=== PATIENT | male | born 1945 | race Caucasian/White ===

== ENCOUNTER 2017-11-13 17:14 | Observation (INO) | payer BC, MEDICARE ==
[~2017-11-13 17:14] MED LIST: ISOVUE-370 76%-LOCM 1 ML ONE
[2017-11-13 17:49] LABS: #Eosinphils 0.2 thou/uL (0.0-0.7); #Monocytes 0.5 thou/uL (0.11-0.59); #Neutrophils 3.7 thou/uL (1.40-6.50); %Basophils 0.3 % (0.0-1.0); %Eosinophils 2.5 % (0.0-10.0); %Lymphocytes 30.7 % (21.0-51.0); %Monocytes 8.5 % (0.0-10.0); Mean Corpuscular HGB CONC 32.2 g/dL (32.0-36.0); Mean Corpuscular Hemoglobin 28.9 pg (27.0-31.0); Mean Corpuscular Volume 89.8 fl (80.0-94.0); Platelet Count 139 thou/uL (130-400); RBC Distribution Width 12.6 % (11.5-14.5); White Blood Cell (WBC) Count 6.3 thou/uL (4.8-10.8)
[2017-11-13 18:18] LABS: ALT (SGPT) 24 U/L (8-55); AST (SGOT) 18 U/L (5-34); Albumin 4.3 g/dL (3.4-4.8); Alkaline Phosphatase 82 U/L (40-150); Anion Gap 11 mmol/L (10-20); BUN (Urea Nitrogen) 22 mg/dL (8.4-25.7); Bilirubin, Total 0.6 mg/dL (0.2-1.2); CK (CPK) 99 U/L (30-200); Calc. Creatinine Clearance 0 mL/min (70-130); Calcium 9.9 mg/dL (7.8-10.44); Carbon Dioxide 34 mmol/L (23-31); Chloride 99 mmol/L (98-107); Estimated GFR-MDRD 69; Globulin 2.9 g/dL (2.4-3.5); Glucose 101 mg/dL (83-110); Potassium 3.5 mmol/L (3.5-5.1); Protein, Total 7.2 g/dL (5.8-8.1); Sodium 140 mmol/L (136-145)
[2017-11-13 18:19] LABS: CKMB 2.8 ng/mL (0-6.6); Troponin I Less than 0.010 ng/mL (< 0.028)
--- NOTE | 2017-11-13 18:43 | RAD ---
PORTABLE AP CHEST X-RAY 11/13/17 HISTORY: Chest pressure. COMPARISON: 08/11/13. FINDINGS: Endotracheal tube and nasogastric tube are no longer visualized. The cardiac silhouette and pulmonary vasculature are within normal limits. The lungs are clear on today's exam. There is no other interva l change. IMPRESSION: No acute cardiopulmonary process. POS: [facility]
[2017-11-13] MEDS ORDERED: Famotidine/PF 20 mg/2ml Vial ONE (20:53)
[2017-11-13] MEDS ORDERED: Water For Inject, Bacteriostat 30 ML ONE (20:53)
[2017-11-13] MEDS ORDERED: methylPREDNISolone Sod Succ/PF 125 MG/2 ML VIAL ONE (20:53)
[2017-11-13] MEDS ORDERED: diphenhydrAMINE 50 MG/ML VIAL ONE (20:53)
[2017-11-13 21:26] LABS: Troponin I 0.015 ng/mL (< 0.028)
[2017-11-13 21:50] LABS: Bilirubin Negative (Negative); Blood, Urine Negative (Negative); Clarity CLEAR (Clear); Glucose, Urine (Dipstick) Negative (Negative); Leukocyte Negative (Negative); Nitrite Negative (Negative); Protein, Urine (Dipstick) Negative (Neg-Trace); Urobilinogen 0.2 mg/dL (0.2-1.0); pH, Urine 7.5 (5.0-9.0)
[2017-11-13] MEDS ORDERED: Ondansetron HCl/PF 4 MG/2 ML Vial IVP PRN (22:10)
[2017-11-13] MEDS ORDERED: Acetaminophen 325 MG TAB PO PRN (22:10)
[2017-11-13] MEDS ORDERED: Ondansetron ODT 4 MG TAB SL PRN (22:10)
[2017-11-13 22:18] VITALS: BMI 30.6
[2017-11-13] MEDS ORDERED: Diazepam 5 MG TAB PO PRN (23:36)
[2017-11-13] MEDS ORDERED: Meclizine HCl 25 MG TAB PO PRN (23:36)
[2017-11-13] MEDS ORDERED: Temazepam 15 MG CAP PO PRN (23:46)
[2017-11-13] MEDS ORDERED: hydrALAZINE 20 MG/ML VIAL SLOW IVP PRN (23:46)
[2017-11-13] MEDS ORDERED: Nitroglycerin 0.4 MG TAB (25 Tab Bottle) PO PRN (23:46)
[2017-11-13] MEDS ORDERED: HYDROcodone/Acetaminophen 5/325 mg Tablet PO PRN (23:46)
[2017-11-13] MEDS ORDERED: Sodium Chloride 0.9% 1,000 ML IV SCH (23:59)
--- NOTE | 2017-11-14 00:13 | CT ---
CT ANGIOGRAM ABDOMEN AND PELVIS WITH IV CONTRAST AND 3D RECONSTRUCTIONS CT ANGIOGRAM BILATERAL LOWER EXTREMITIES WITH RUNOFF TO THE FEET WITH IV CONTRAST AND 3D RECONSTRUCTI ONS. 11/13/17 HISTORY: Interval development of bilateral lower extremity pain. FINDINGS: There is mild dependent bibasilar atelectasis. There is a large exophytic hypodense right renal lesion involving the superior pole mid portion of th e right kidney measuring 13 cm which demonstrates fluid attenuation consistent with a cyst. A small e xophytic lesion seen at the inferior pole left kidney measuring 3.2 cm, also demonstrating characteri stics most consistent with a cyst. A subcentimeter to small to characterize hypodense lesion is seen at the superior pole left kidney. The liver, spleen, pancreas, bilateral adrenal glands, and decompressed urinary bladder demonstrate a normal CT appearance for arterial phase of imaging. There is colonic diverticulosis seen throughout the colon. There is a fat containing left inguinal he rnia present, but the portion of the sigmoid colon extends just within the defect of the left inguina l hernia. There is no bowel obstruction. The abdominal aorta and iliac arteries are patent. The celiac, superior mesenteric, and inferior mese nteric arteries are patent. There are two patent bilateral renal arteries identified. BILATERAL LOWER EXTREMITY RUNOFF: The bilateral common femoral, superficial femoral, profunda femoral, and popliteal arteries are widel y patent. The proximal aspects of the tibioperoneal vessels are patent. However, the tibioperoneal vessels are not seen distal to the level of the mid calf. Given that this is a symmetric finding bilaterally, thi s is probably secondary to the timing of the contrast bolus and as result significant stenosis or occ lusion of the tibioperoneal vessels in the bilateral lower extremities cannot be determined based on this exam. IMPRESSION: 1. Patent abdominal aorta and bilateral iliac arteries. 2. Patent mesenteric vessels and renal arteries. 3. Patent femoral and popliteal arteries. 4. The tibioperoneal vessels are not opacified from the level of the mid calf to the feet, given that this is a symmetric finding, this is probably attributable to timing of the contrast bolus. As a result, significant narrowing or occlusion of the tibioperoneal vessels cannot be excluded based on this exam. 5. Colonic diverticulosis. 6. Bilateral renal cysts. 7. Left inguinal hernia which is predominantly fat containing, but a small portion of the sigmoi d colon extends just into this defect. POS: [facility]
--- NOTE | 2017-11-14 02:40 | HP ---
CHIEF COMPLAINT: Leg swelling and chest pain. HISTORY OF PRESENT ILLNESS: This is a 72-year-old pleasant gentleman who was apparently in usual sta te of health, went to the primary care physician day before yesterday evening for evaluation of bilat eral leg swelling. The patient was sent home after being evaluated. As the patient got home, he dev eloped chest pain which is retrosternal and then also went up to his arm and neck. It was associated with some shortness of breath and felt like indigestion. He denies syncope, dizziness, abdominal pa in, nausea, vomiting, fever, or palpitations. The patient's intensity was 7/10. The patient's pain was dull in nature, not associated with chills, associated with cough and relieved by nothing, exacer bated by nothing. Following this reason, the patient was sent by the primary care physician for eval uation of that pain to the ER. PAST MEDICAL HISTORY: Significant for prostate malignancy which is treated with hormonal and radiati on therapy. PAST SURGICAL HISTORY: Tunnel repair, bilateral cataract repair, right thumb amputation repair, katie ia repair, tonsillectomy. PSYCHIATRIC HISTORY: No previous psychiatric history. SOCIAL HISTORY: Drinks socially. Denies any smoking or recreational drug use. ALLERGIES: Known allergy to IODINE, he passes out. CURRENT MEDICATIONS: Include hydrochlorothiazide 25 p.o. b.i.d., aspirin 81 mg p.o. daily, Zofran, d iazepam 5 mg p.o. q.6 hours p.r.n. for dizziness, meclizine 25 p.o. q.6 hours p.r.n. for dizziness, A llegra, magnesium, and metoprolol 25 p.o. daily. REVIEW OF SYSTEMS: Significant for chest pain and the bilateral swelling of leg, otherwise no fever, no chills, no headache, no appetite, no hearing loss, no latencies. No cough, no diarrhea, dysuria or polyuria. No memory or mood changes. No neck pain. PHYSICAL EXAMINATION: VITAL SIGNS: Blood pressure is 113/74, pulse is 54, respirations 16, sats 98% on room air. GENERAL: Patient is lying in bed in no apparent distress. HEENT: Atraumatic and normocephalic. Pupils equal, round, react to light. Extraocular movements in tact. Mucous membranes moist. NECK: Supple. No JVD. CHEST: Breath sounds heard. No rales or rhonchi. HEART: S1, S2, no murmurs or gallops. ABDOMEN: Soft. EXTREMITIES: No cyanosis, clubbing, edema. Distal pulses present. NEUROLOGIC: Alert, awake, oriented. No cranial nerve deficits. No sensorimotor deficits. EXTREMITIES: No cyanosis or clubbing. Right now, I cannot appreciate any edema and I can palpate di stal pulses. LABORATORY DATA: EKG shows sinus bradycardia, ST segment normal, T-wave normal rate is 53. Chest x- ray shows no infiltrates, no pneumothorax, no hemothorax. WBC count is 6.3, hemoglobin is 15. Sodiu m is 140, potassium is 3.5, creatinine is 106. Two sets of troponin are negative. Lipase is 23. UA is negative. ASSESSMENT AND PLAN: Chest pain, rule out acute coronary syndrome. Patient's PCP wanted a CTA of th e chest to study the vasculature of the heart and the aorta, report is pending. We will consult Card iology, trend troponins and do echocardiogram and give p.r.n. medications for the pain. Prostate can cer followed by MD Whitaker, undergoing treatment, bilateral pedal edema, seems to have resolved now. Sequential compression devices for deep venous thrombosis prophylaxis. I will work with the jinny jang for further caring for the patient.
[2017-11-14 05:48] LABS: #Lymphocytes 0.7 thou/uL (1.20-3.40); #Neutrophils 4.8 thou/uL (1.40-6.50); %Basophils 0.1 % (0.0-1.0); %Eosinophils 0.4 % (0.0-10.0); %Lymphocytes 12.1 % (21.0-51.0); %Monocytes 0.6 % (0.0-10.0); %Neutrophils 86.8 % (42.0-75.0); Hemoglobin 13.8 g/dL (14.0-18.0); Mean Corpuscular HGB CONC 32.4 g/dL (32.0-36.0); Mean Corpuscular Volume 89.5 fl (80.0-94.0); Mean Platelet Volume 9.4 fL (7.4-10.4); Platelet Count 140 thou/uL (130-400); RBC Distribution Width 12.4 % (11.5-14.5); Red Blood Cell (RBC) Count 4.77 mill/uL (4.70-6.10); White Blood Cell (WBC) Count 5.5 thou/uL (4.8-10.8)
[2017-11-14 06:13] LABS: Anion Gap 15 mmol/L (10-20); BUN (Urea Nitrogen) 24 mg/dL (8.4-25.7); Calc. Creatinine Clearance 86 mL/min (70-130); Calcium 9.6 mg/dL (7.8-10.44); Carbon Dioxide 25 mmol/L (23-31); Cardiac Risk 4.1 (Less than 4.5); Chloride 104 mmol/L (98-107); Cholesterol 163 mg/dl (< 200 Desired); Estimated GFR-MDRD 65; Glucose 181 mg/dL (83-110); HDL Cholesterol 40 mg/dL (>60 Neg Risk); LDL Cholesterol, Calculated 95 mg/dL; Potassium 3.6 mmol/L (3.5-5.1); Sodium 140 mmol/L (136-145); Triglycerides 141 mg/dL (Less than 150)
[2017-11-14] MEDS ORDERED: Aspirin 325 MG TAB PO SCH (09:00)
[2017-11-14] MEDS ORDERED: Hydrochlorothiazide 25 MG TAB PO SCH (09:00)
[2017-11-14 11:31] VITALS: BP 113/71; TEMP 97.8
[2017-11-14] MEDS ORDERED: Atorvastatin Calcium 20 MG TAB PO SCH (21:00)
--- NOTE | 2017-11-14 23:03 | CON ---
DATE OF CONSULTATION: 11/14/2017 PRIMARY PHOTOGRAPHY TEACHER: Avtar Batista M.D. HISTORY OF PRESENT ILLNESS: Mr. Sanchez is a very pleasant 72-year-old white gentleman who comes to the hospital for chest pain and leg swelling. He wore some socks and he noted that his feet were sw ollen and the skin was erythematous in the area where he wore the socks. He thought he might have elizabeth d an allergic reaction to them. He went to see his primary care doctor. He also started to have jm st pain. He described it as an epigastric pain that lasted for about a day and a half. He decided t o come in for further evaluation of all this. He denies any associated symptoms. His pain went up i nto his left arm and the neck. He also has the pain on the right side of his chest that is worse whe n you touch his chest. There is a similar pain on the right side. PAST MEDICAL HISTORY: History of prostate cancer treated with hormonal therapy and radiation, hypert ension. PAST SURGICAL HISTORY: 1. Carpal tunnel repair. 2. Bilateral cataract surgery. 3. Right thumb repair. 4. Hernia repair. 5. Tonsillectomy. SOCIAL HISTORY: No tobacco or drugs. Alcohol use is social only. OUTPATIENT MEDICATIONS: Include, 1. Hydrochlorothiazide 25 mg p.o. b.i.d. 2. Aspirin 81 a day. 3. Zofran. 4. Diazepam. 5. Meclizine p.r.n. 6. Pam. 7. Magnesium. 8. Metoprolol 25 mg b.i.d. ALLERGIES: IODINE has made him pass out before and developed a rash. REVIEW OF SYSTEMS: A 12-point review of systems was done and is all negative unless stated in the hi story of present illness. PHYSICAL EXAMINATION: VITAL SIGNS: Temperature 97.8, pulse 61, respiration rate 16, satting 94% on room air. Blood pressu re 113/71. GENERAL: Awake, alert, oriented x3, in no distress. HEENT: Normocephalic, atraumatic. NECK: Supple. LUNGS: Clear. CARDIOVASCULAR: S1, S2, no S3, S4, no murmurs or rubs. Chest wall is tender to palpation bilateral right and left sides. ABDOMEN: Soft, positive bowel sounds. EXTREMITIES: No edema. SKIN: Warm and dry. LABORATORY WORK: Reviewed. CBC was reviewed and unremarkable. D-dimer was undetectable. Chemistri es were unremarkable. Troponin was completely negative x3. BNP was 81. UA was unremarkable. Chest x-ray was reviewed. CT angio of the aorta done yesterday in the ER showed patent abdominal aor ta and bilateral iliac arteries. Mesenteric vessels and renal arteries were patent. Femoral and pop liteal arteries are patent. Tibial and peroneal vessels are not well-opacified and cannot comment on those. Colonic diverticulosis, bilateral renal cysts, and left inguinal hernia predominantly fat co ntaining with a small portion in the sigmoid colon extending just into the defect. Echocardiogram was reviewed, normal LV function with diastolic dysfunction grade I. ASSESSMENT AND PLAN: 1. Chest pain. 2. Hypertension. PLAN: He has ruled out with negative enzymes and unremarkable EKG. Echocardiogram does not suggest an acute coronary syndrome going on. He is currently chest pain free. At this time, I gave him garcia ce of doing a stress test over the weekend versus just discharging him home and doing this workup as an outpatient. He states that he feels very well right now. He has not had any more chest pain for over 48 hours and he would like to go home and have this scheduled as an outpatient with Dr. Kris torre's office. I think this is reasonable. We will plan on doing the workup as an outpatient and will schedule him for a PET scan as an outpatient with followup with Dr. Batista. Thank you for letting us to participate in the care of your patient.
--- NOTE | 2017-11-29 13:14 | EKG ---
Test Reason : CP Blood Pressure : / mmHG Vent. Rate : 053 BPM Atrial Rate : 053 BPM P-R Int : 160 ms QRS Dur : 078 ms QT Int : 448 ms P-R-T Axes : 030 054 048 degrees QTc Int : 420 ms Sinus bradycardia Otherwise normal ECG Confirmed by LEE ANN EAGLE, RHIANNON ([id number]), movie editor MARY LOVE ([id number]) on 11/29/2017 1:14:19 PM Referred By: Confirmed By:RHIANNON NANCE MD
== END 2017-11-14 17:15 | disposition home or self-care (01) ==
LOC: ERS 17:14 → 2SW 20:38
PROVIDERS: ADMIT Internal Medicine; ATTEND Internal Medicine
DX: R07.89 Other chest pain (principal); R22.43 Localized swelling, mass and lump, lower limb, bilateral; I10 Essential (primary) hypertension; Z91.041 Radiographic dye allergy status; Z79.899 Other long term (current) drug therapy; Z98.42 Cataract extraction status, left eye; Z98.41 Cataract extraction status, right eye; Z90.89 Acquired absence of other organs; Z89.011 Acquired absence of right thumb; Z98.890 Other specified postprocedural states; Z92.3 Personal history of irradiation; Z85.46 Personal history of malignant neoplasm of prostate
CPT/HCPCS: 36415; 71045; 75635; 80048; 80053; 80061; 81003; 82553; 83690; 83880; 84484; 85025; 85379; 93005; 93306; 94760; 96360; 96361; 96374; 96375; G0378; J1200; J2930; S0028

== ENCOUNTER 2018-12-08 11:42 | Emergency (ER) | payer BC, MEDICARE ==
[2018-12-08 12:19] LABS: White Blood Cell (WBC) Count 5.3 thou/uL (4.8-10.8)
[2018-12-08 12:20] LABS: #Eosinphils 0.1 thou/uL (0.0-0.7); #Lymphocytes 1.2 thou/uL (1.20-3.40); #Monocytes 0.3 thou/uL (0.11-0.59); #Neutrophils 3.7 thou/uL (1.40-6.50); %Basophils 0.4 % (0.0-1.0); %Eosinophils 1.3 % (0.0-10.0); %Lymphocytes 23.4 % (21.0-51.0); %Monocytes 5.6 % (0.0-10.0); %Neutrophils 69.3 % (42.0-75.0); Hemoglobin 14.9 g/dL (14.0-18.0); Mean Corpuscular HGB CONC 32.8 g/dL (32.0-36.0); Mean Corpuscular Hemoglobin 29.4 pg (27.0-31.0); Mean Corpuscular Volume 89.7 fL (78.0-98.0); Mean Platelet Volume 9.4 fL (7.4-10.4); Platelet Count 134 thou/uL (130-400); RBC Distribution Width 12.4 % (11.5-14.5); Red Blood Cell (RBC) Count 5.06 mill/uL (4.70-6.10)
[2018-12-08 12:44] LABS: ALT (SGPT) 32 U/L (8-55); AST (SGOT) 36 U/L (5-34); Albumin 4.8 g/dL (3.4-4.8); Alkaline Phosphatase 84 U/L (40-150); Anion Gap 11 mmol/L (10-20); BUN (Urea Nitrogen) 22 mg/dL (8.4-25.7); Bilirubin, Total 0.6 mg/dL (0.2-1.2); CK (CPK) 162 U/L (30-200); Calc. Creatinine Clearance 0 mL/min (70-130); Calcium 10.3 mg/dL (7.8-10.44); Carbon Dioxide 32 mmol/L (23-31); Chloride 100 mmol/L (98-107); Estimated GFR-MDRD 64; Globulin 3.4 g/dL (2.4-3.5); Glucose 99 mg/dL (83-110); Lipase 60 U/L (8-78); Potassium 4.1 mmol/L (3.5-5.1); Protein, Total 8.2 g/dL (5.8-8.1); Sodium 139 mmol/L (136-145)
--- NOTE | 2018-12-08 13:08 | RAD ---
CHEST ONE VIEW: HISTORY: Chest pain. COMPARISON: 11/13/2017 FINDINGS: The lungs are clear. No pneumothorax or effusion. The cardiac silhouette and mediastinal contours a re within normal limits. IMPRESSION: No acute intrathoracic abnormality. POS: [facility]
--- NOTE | 2018-12-08 13:16 | CT ---
CT HEAD WITHOUT CONTRAST: HISTORY: Pain. COMPARISON: 10/04/2012 FINDINGS: No parenchymal hemorrhage. No extraaxial hematoma. No midline shift. The basilar cisterns are pickard nt. Brain volume is age appropriate. Cortical junior white matter differentiation is preserved. No evidence of hydrocephalus. Left scleral gland is noted. Calvarium is intact. Adequate aeration of the sinuses and mastoid air cells. IMPRESSION: No acute intracranial process. POS: [facility]
[2018-12-08] MEDS ORDERED: Aspirin Chewable 81 MG TAB ONE (13:18)
== END 2018-12-08 14:10 | disposition home or self-care (01) ==
LOC: ERS 11:42
DX: R07.2 Precordial pain (principal); Z79.899 Other long term (current) drug therapy; Z79.82 Long term (current) use of aspirin
CPT/HCPCS: 70450; 71045; 80053; 82550; 83690; 83880; 84484; 85025; 87804; 93005

== ENCOUNTER 2019-03-03 17:13 | Emergency (ER) | payer BC, MEDICARE ==
[2019-03-03] MEDS ORDERED: Ibuprofen 200 MG TAB ONE (17:51)
== END 2019-03-03 17:54 | disposition home or self-care (01) ==
LOC: SCSER 17:13
DX: R51 Headache (principal)
CPT/HCPCS: 99283

== ENCOUNTER 2019-03-10 12:37 | Outpatient (CLI) | payer BC, MEDICARE ==
--- NOTE | 2019-03-10 23:26 | HP ---
HISTORY OF PRESENT ILLNESS: Mr. 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 The patient's medical history is significant for prostate carcinoma treated with Lupron and radiation therapy. 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 He states that his radiation oncologist has recommended a course of 20 treatments for radiation enteritis. PAST MEDICAL HISTORY: 1. Meniere disease. 2. Seasonal allergies. 3. History of acute angioedema. 4. History of pericarditis. 5. Prostate carcinoma status post treatment with Lupron and radiation. PAST SURGICAL HISTORY: 1. Cataract surgery of right eye. 2. Cataract surgery of left eye. 3. Right thumb surgery. 4. Tonsillectomy. 5. Right inguinal herniorrhaphy with mesh. 6. Right hydrocelectomy. 7. Left eye surgery for retinal detachment x4. 8. Right eye surgery for retinal detachment x2.. MEDICATIONS: 1. Hydrochlorothiazide. 2. Pam. 3. Vitamin D. 4. Magnesium. 5. Metoprolol. 6. Vitamin C. 7. Coenzyme Q10. 8. Atorvastatin. 9. Potassium. ALLERGIES: IODINE, IODINATED CONTRAST. SOCIAL HISTORY: Social history is negative for tobacco use. The patient admits to the consumption of less than one drink per week. FAMILY HISTORY: Family history is significant for diabetes mellitus. The patient states that his father was diagnosed with diabetes mellitus. Family history is also significant for coronary artery disease. The patient states that his mother was diagnosed with coronary artery disease. PHYSICAL EXAMINATION: VITAL SIGNS: Temperature 98.0, pulse 60, respirations 18, blood pressure 121/71. GENERAL: A 73-year-old gentleman, sitting on table in examination room, in no acute distress. HEENT: Normocephalic and atraumatic. NECK: No nuchal rigidity. CHEST: Clear to auscultation. CV: Regular rate and rhythm. ABDOMEN: Soft. EXTREMITIES: No clubbing or cyanosis. NEUROLOGIC: Grossly nonfocal. ASSESSMENT AND PLAN: 1. 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 The patient reports lower GI bleeding for the past 2 years. The patient states his radiation oncologist has referred him for a course of 20 hyperbaric oxygen treatments. The patient denies any history of congestive heart failure, seizures, crushing chest trauma, collapsed lung, recent retinal surgery, blood disorders including hereditary spherocytosis or the administration of any chemotherapeutic agents contraindicating hyperbaric oxygen therapy. The patient understands the risks and benefits of hyperbaric oxygen therapy and wishes to proceed. The patient will be treated at 2.5 CHOLO with each session lasting 90 minutes. As stated above, the patient will receive a course of 20 treatments. 2. Meniere disease. 3. Seasonal allergies. 4. History of acute angioedema. 5. History of pericarditis. 6. Prostate carcinoma, status post treatment with Lupron and radiation. Job ID: [id number]
== END 2019-03-10 12:38 | disposition home or self-care (01) ==
LOC: WCC 12:37
PROVIDERS: ATTEND Family Medicine
DX: K52.0 Gastroenteritis and colitis due to radiation (principal); H81.09 Meniere's disease, unspecified ear; J30.2 Other seasonal allergic rhinitis; Z85.46 Personal history of malignant neoplasm of prostate
CPT/HCPCS: 99183; 99202; G0463

== ENCOUNTER 2019-03-11 11:18 | Outpatient (CLI) | payer BC, MEDICARE | END 2019-03-11 11:19 | disposition home or self-care (01) | LOC: WCC 11:18 | PROVIDERS: ATTEND Family Medicine | DX: K52.0 Gastroenteritis and colitis due to radiation (principal) | CPT/HCPCS: G0277 ==

== ENCOUNTER 2019-03-15 10:44 | Outpatient (CLI) | payer BC, MEDICARE | END 2019-03-15 10:45 | disposition home or self-care (01) | LOC: WCC 10:44 | PROVIDERS: ATTEND Family Medicine | DX: K52.0 Gastroenteritis and colitis due to radiation (principal) | CPT/HCPCS: G0277 ==

== ENCOUNTER 2019-03-16 11:10 | Outpatient (CLI) | payer BC, MEDICARE | END 2019-03-16 11:11 | disposition home or self-care (01) | LOC: WCC 11:10 | PROVIDERS: ATTEND Family Medicine | DX: K52.0 Gastroenteritis and colitis due to radiation (principal) | CPT/HCPCS: G0277 ==

== ENCOUNTER 2019-03-17 11:37 | Outpatient (CLI) | payer BC, MEDICARE | END 2019-03-17 11:38 | disposition home or self-care (01) | LOC: WCC 11:37 | PROVIDERS: ATTEND Family Medicine | DX: K52.0 Gastroenteritis and colitis due to radiation (principal) | CPT/HCPCS: G0277 ==

== ENCOUNTER 2019-03-18 11:22 | Outpatient (CLI) | payer BC, MEDICARE | END 2019-03-18 11:23 | disposition home or self-care (01) | LOC: WCC 11:22 | PROVIDERS: ATTEND Family Medicine | DX: K52.0 Gastroenteritis and colitis due to radiation (principal); C61 Malignant neoplasm of prostate | CPT/HCPCS: G0277 ==

== ENCOUNTER 2019-03-23 11:00 | Outpatient (CLI) | payer BC, MEDICARE | END 2019-03-23 11:01 | disposition home or self-care (01) | LOC: WCC 11:00 | PROVIDERS: ATTEND Family Medicine | DX: K52.0 Gastroenteritis and colitis due to radiation (principal) | CPT/HCPCS: 99183 ==

== ENCOUNTER 2019-03-24 12:59 | Outpatient (CLI) | payer BC, MEDICARE | END 2019-03-24 13:00 | disposition home or self-care (01) | LOC: WCC 12:59 | PROVIDERS: ATTEND Family Medicine | DX: K52.0 Gastroenteritis and colitis due to radiation (principal) | CPT/HCPCS: 99183 ==

== ENCOUNTER 2019-03-25 09:43 | Outpatient (CLI) | payer BC, MEDICARE | END 2019-03-25 09:44 | disposition home or self-care (01) | LOC: WCC 09:43 | PROVIDERS: ATTEND Family Medicine | DX: K52.0 Gastroenteritis and colitis due to radiation (principal) | CPT/HCPCS: 99183 ==

== ENCOUNTER 2019-03-30 13:38 | Outpatient (CLI) | payer BC, MEDICARE | END 2019-03-30 13:39 | disposition home or self-care (01) | LOC: WCC 13:38 | PROVIDERS: ATTEND Family Medicine | DX: K52.0 Gastroenteritis and colitis due to radiation (principal) | CPT/HCPCS: 99183 ==

== ENCOUNTER 2019-03-31 09:16 | Outpatient (CLI) | payer BC, MEDICARE | END 2019-03-31 09:17 | disposition home or self-care (01) | LOC: WCC 09:16 | PROVIDERS: ATTEND Family Medicine | DX: K52.0 Gastroenteritis and colitis due to radiation (principal) | CPT/HCPCS: 99183 ==

== ENCOUNTER 2019-04-01 12:20 | Outpatient (CLI) | payer BC, MEDICARE | END 2019-04-01 12:21 | disposition home or self-care (01) | LOC: WCC 12:20 | PROVIDERS: ATTEND Family Medicine | DX: K52.0 Gastroenteritis and colitis due to radiation (principal) | CPT/HCPCS: 99183 ==

== ENCOUNTER 2019-04-05 15:08 | Outpatient (CLI) | payer BC, MEDICARE | END 2019-04-05 15:09 | disposition home or self-care (01) | LOC: WCC 15:08 | PROVIDERS: ATTEND Family Medicine | DX: K52.0 Gastroenteritis and colitis due to radiation (principal) | CPT/HCPCS: 99183 ==

== ENCOUNTER 2019-04-06 14:39 | Outpatient (CLI) | payer BC, MEDICARE | END 2019-04-06 14:40 | disposition home or self-care (01) | LOC: WCC 14:39 | PROVIDERS: ATTEND Family Medicine | DX: K52.0 Gastroenteritis and colitis due to radiation (principal) | CPT/HCPCS: 99183 ==

== ENCOUNTER 2019-04-07 11:14 | Outpatient (CLI) | payer BC, MEDICARE | END 2019-04-07 11:15 | disposition home or self-care (01) | LOC: WCC 11:14 | PROVIDERS: ATTEND Family Medicine | DX: K52.0 Gastroenteritis and colitis due to radiation (principal) | CPT/HCPCS: 99183 ==

== ENCOUNTER 2019-04-08 10:58 | Outpatient (CLI) | payer BC, MEDICARE | END 2019-04-08 10:59 | disposition home or self-care (01) | LOC: WCC 10:58 | PROVIDERS: ATTEND Family Medicine | DX: K52.0 Gastroenteritis and colitis due to radiation (principal) | CPT/HCPCS: 99183 ==

== ENCOUNTER 2020-01-30 00:23 | Emergency (ER) | payer BC, MEDICARE, OTHER ==
[2020-01-30 01:38] LABS: #Basophils 0.1 thou/uL (0.0-0.2); #Eosinphils 0.1 thou/uL (0.0-0.7); #Lymphocytes 2.4 thou/uL (1.20-3.40); #Monocytes 0.6 thou/uL (0.11-0.59); %Basophils 0.9 % (0.0-1.0); %Eosinophils 1.8 % (0.0-10.0); %Lymphocytes 33.2 % (21.0-51.0); %Monocytes 7.8 % (0.0-10.0); %Neutrophils 56.2 % (42.0-75.0); Hemoglobin 14.7 g/dL (14.0-18.0); Mean Corpuscular HGB CONC 33.4 g/dL (32.0-36.0); Mean Corpuscular Hemoglobin 29.4 pg (27.0-31.0); Mean Corpuscular Volume 87.9 fL (78.0-98.0); Mean Platelet Volume 9.3 fL (7.4-10.4); Platelet Count 132 thou/uL (130-400); RBC Distribution Width 12.8 % (11.5-14.5); Red Blood Cell (RBC) Count 4.99 mill/uL (4.70-6.10); White Blood Cell (WBC) Count 7.1 thou/uL (4.8-10.8)
[2020-01-30 02:00] LABS: ALT (SGPT) 24 U/L (8-55); AST (SGOT) 22 U/L (5-34); Albumin 4.2 g/dL (3.4-4.8); Alkaline Phosphatase 89 U/L (40-110); Anion Gap 12 mmol/L (10-20); BUN (Urea Nitrogen) 19 mg/dL (8.4-25.7); Bilirubin, Total 0.4 mg/dL (0.2-1.2); CK (CPK) 95 U/L (30-200); Calc. Creatinine Clearance 0 mL/min (70-130); Calcium 9.6 mg/dL (7.8-10.44); Carbon Dioxide 32 mmol/L (23-31); Chloride 101 mmol/L (98-107); Estimated GFR-MDRD 57; Globulin 2.8 g/dL (2.4-3.5); Glucose 120 mg/dL (83-110); Potassium 3.2 mmol/L (3.5-5.1); Sodium 142 mmol/L (136-145)
[2020-01-30 02:10] LABS: Bilirubin Negative (Negative); Blood, Urine Negative (Negative); Clarity Clear (Clear); Glucose, Urine (Dipstick) Normal (Negative); Leukocyte Negative Leu/uL (Negative); Nitrite Negative (Negative); Protein, Urine (Dipstick) Negative (Neg-Trace); Urobilinogen Normal mg/dL (Less than 2)
--- NOTE | 2020-01-30 08:27 | RAD ---
PORTABLE CHEST: DATE: 01/30/2020. PROVIDED CLINICAL HISTORY: Cough. FINDINGS: Comparison 12/08/2018. Cardiac and mediastinal silhouette is within normal limits. No focal consolid ation, pleural fluid, or pneumothorax apparent. IMPRESSION: No evidence for an acute cardiopulmonary process. POS: [facility]
--- NOTE | 2020-02-02 13:43 | EKG ---
Test Reason : Blood Pressure : / mmHG Vent. Rate : 052 BPM Atrial Rate : 052 BPM P-R Int : 202 ms QRS Dur : 084 ms QT Int : 440 ms P-R-T Axes : 035 047 052 degrees QTc Int : 409 ms Sinus bradycardia Low voltage QRS Borderline ECG Confirmed by PANTERA FARFAN ([id number]), magazine editor IAIN DALLAS ([id number]) on 02/02/2020 1:42:48 PM Referred By: Confirmed By:PANTERA FARFAN
== END 2020-01-30 03:06 | disposition home or self-care (01) ==
LOC: ERS 00:23
DX: J10.1 Influenza due to other identified influenza virus with other respiratory manifestations (principal)
CPT/HCPCS: 71045; 80053; 81003; 82550; 83605; 84484; 85025; 87040; 87804; 93005; U0001

== ENCOUNTER 2023-12-03 14:55 | Outpatient (CLI) | payer MEDICARE, BC ==
[2023-12-03 16:12] LABS: #Basophils 0.1 10x3/uL (0.0-0.2); #Eosinphils 0.1 10x3/uL (0.0-0.5); #Monocytes 0.6 10x3/uL (0.0-1.1); #Neutrophils 4.8 10x3/uL (1.5-8.4); %Basophils 0.7 % (0.0-2.0); %Eosinophils 1.8 % (0.0-6.0); %Monocytes 7.8 % (0.0-10.0); %Neutrophils 63.4 % (40.0-75.0); Hematocrit 45.4 % (38.8-50.0); Hemoglobin 15.4 g/dL (13.5-17.5); Mean Corpuscular HGB CONC 33.9 g/dL (32.0-36.0); Mean Corpuscular Hemoglobin 29.7 pg (27.0-33.0); Mean Corpuscular Volume 87.6 fl (81.2-95.1); Mean Platelet Volume 11.9 fl (7.4-10.4); Platelet Count 148 10x3/uL (150-450); RBC Distribution Width 13.2 % (11.5-14.5); Red Blood Cell (RBC) Count 5.18 10x6/uL (4.32-5.72); White Blood Cell (WBC) Count 7.6 10x3/uL (3.5-10.5)
[2023-12-03 16:28] LABS: ALT (SGPT) 17 U/L (8-55); AST (SGOT) 17 U/L (5-34); Albumin 4.5 g/dL (3.4-4.8); Alkaline Phosphatase 72 U/L (40-110); Anion Gap 14 mmol/L (10-20); BUN (Urea Nitrogen) 21 mg/dL (8.4-25.7); Bilirubin, Total 0.7 mg/dL (0.2-1.2); Calc. Creatinine Clearance 0 mL/min (70-130); Calcium 9.5 mg/dL (7.8-10.44); Carbon Dioxide 30 mmol/L (23-31); Chloride 103 mmol/L (98-107); Estimated GFR 73; Globulin 2.8 g/dL (2.4-3.5); Glucose 124 mg/dL (83-110); Potassium 3.7 mmol/L (3.5-5.1); Protein, Total 7.3 g/dL (5.8-8.1); Sodium 143 mmol/L (136-145)
== END 2023-12-03 14:56 | disposition home or self-care (01) ==
LOC: LABBT 14:55
PROVIDERS: ATTEND Surgery
DX: Z01.818 Encounter for other preprocedural examination (principal); K40.90 Unilateral inguinal hernia, without obstruction or gangrene, not specified as recurrent
CPT/HCPCS: 80053; 85025; 93005; 93010

== ENCOUNTER 2023-12-10 07:48 | Day surgery (SDC) | payer MEDICARE ==
[2023-12-03 16:08] VITALS: BMI 27.6
[2023-12-10] MEDS ORDERED: PROPOFOL 20 ML ONE (12:15)
[2023-12-10] MEDS ORDERED: SUGAMMADEX SODIUM 200 MG/2 ML VIAL ONE (12:15)
[2023-12-10] MEDS ORDERED: fentaNYL PF 100 MCG/2 ML SYRINGE ONE (12:15)
[2023-12-10] MEDS ORDERED: Lidocaine 1% PF 5 ML VIAL ONE (12:16)
[2023-12-10] MEDS ORDERED: Rocuronium Bromide 10 MG/ML (10ML VIAL) ONE (12:16)
[2023-12-10] MEDS ORDERED: Ondansetron PF 4 MG/2 ML Vial ONE (12:16)
[2023-12-10] MEDS ORDERED: Dexamethasone 4 mg/ml Vial ONE (12:16)
[2023-12-10] MEDS ORDERED: Bupivacaine 0.25% HCL 30 ML VIAL ONE (12:58)
[2023-12-10] MEDS ORDERED: EPINEPHrine 1 MG/ML VIAL ONE (12:58)
[2023-12-10] MEDS ORDERED: Sodium Chloride 0.9% 100 ML ONE (13:13)
[2023-12-10] MEDS ORDERED: CEFAZOLIN 2 GM VIAL ONE (13:13)
[2023-12-10] MEDS ORDERED: Lidocaine 2% PF 5 ML VIAL ONE (13:21)
[2023-12-10] MEDS ORDERED: ePHEDrine Sulfate 50 MG/10 ML VIAL ONE (13:40)
== END 2023-12-10 16:15 | disposition home or self-care (01) ==
LOC: SDC 07:48
PROVIDERS: ATTEND Surgery
PROC: 0YQ Anatomical Regions, Lower Extremities, Repair (ICD-10-PCS; principal; 2023-12-10)
DX: D17.6 Benign lipomatous neoplasm of spermatic cord (principal); K40.90 Unilateral inguinal hernia, without obstruction or gangrene, not specified as recurrent; Z79.899 Other long term (current) drug therapy; Z79.82 Long term (current) use of aspirin; Z85.46 Personal history of malignant neoplasm of prostate; Z98.890 Other specified postprocedural states; Z91.041 Radiographic dye allergy status
CPT/HCPCS: 49505; J0171; C1781; J0665; J1100; J2001; J2405; J2704; J3490